=== PATIENT | male | born 1960 | race Caucasian/White ===

== ENCOUNTER → 2016-11-01 | Outpatient (CLI) | payer SELFPAY ==
--- NOTE | 2016-11-01 16:53 | CT ---
CT Calcium Score Clinical information: 56-year-old male for coronary artery disease risk assessment. Comparison: None. ECG Gating: Prospective Scan range: Thoracic inlet to diaphragm. Findings: Examination quality: Good. Limitation: None. Total calcium score: 389 Total volume score: 316 mm3 Percentile: 75-90 % Artery scores Left main coronary artery: 0 Left anterior descending artery: 268 Left circumflex artery: 33 Right coronary artery: 88 Other findings: Cardiac chambers: Unremarkable. Cardiac valves: Unremarkable. Thoracic aorta: Unremarkable. Lungs: Unremarkable. Upper abdomen: Unremarkable. Impression: Total calcium score of 389. This correlates to definite moderate atherosclerotic plaque and moderate risk of coronary event within the next 5 years. Reported By:
== END ==
LOC: RAD 15:01
PROVIDERS: ATTEND Student in an Organized Health Care Education/Training Program
DX: Z13.6 Encounter for screening for cardiovascular disorders (principal)